=== PATIENT | male | born 1990 | race African-American/Black ===

== ENCOUNTER 2022-10-31 16:58 | Emergency (ER) | payer OTHER ==
[2022-10-31 17:08] VITALS: TEMP 98.1; BMI 32.0
[2022-10-31 18:41] LABS: HEMOGLOBIN 13.6 GM/dL (11.7-16.9); MCH 27.6 pg (25.7-33.7); MCHC 33.1 g/dl (32.0-35.9); MEAN CELL VOLUME 83.3 fl (80-96); MEAN PLT VOLUME 9.2 fl (7.5-11.1); PLATELET COUNT 219 10^3/uL (134-434); RBC 4.92 M/mm3 (4.00-5.60); RDW 13.9 % (11.9-15.9); WHITE BLOOD COUNT 5.6 K/mm3 (4.0-10.0)
[2022-10-31 19:05] LABS: POTASSIUM 3.9 mmol/L (3.5-5.1)
[2022-10-31 19:06] LABS: CALCIUM 9.4 mg/dL (8.5-10.1)
[2022-10-31 19:07] LABS: BLOOD UREA NITROGEN 13.1 mg/dL (7-18)
[2022-10-31 19:10] LABS: CREATININE 1.3 mg/dL (0.55-1.3)
[2022-10-31 19:12] LABS: BILIRUBIN,TOTAL 0.4 mg/dL (0.2-1); TOT PROT 8.2 g/dl (6.4-8.2)
[2022-10-31 19:32] VITALS: BP 125/90; PULSE 74; RESP 18
== END 2022-10-31 19:32 | disposition home or self-care (01) ==
LOC: JER 16:58
DX: I48.91 Unspecified atrial fibrillation (principal)
CPT/HCPCS: 36415; 80053; 84443; 84484; 85027; 93005; 93010; 99284-25